=== PATIENT | female | born 2000 | race Caucasian/White ===

== ENCOUNTER 2022-02-23 19:43 | Emergency (ER) | payer SELFPAY ==
[2022-02-23] MEDS ORDERED: Dexamethasone 10 MG/ML VIAL ONE (20:34)
== END 2022-02-23 21:00 | disposition home or self-care (01) ==
LOC: MADERS 19:43
DX: J30.2 Other seasonal allergic rhinitis (principal)
CPT/HCPCS: 96372; 99282; J1100